=== PATIENT | female | born 1970 | race Caucasian/White ===

== ENCOUNTER 2016-03-15 17:44 | Emergency (ER) | payer BC ==
[2016-03-15 18:28] LABS: ABSOLUTE NEUTROPHIL COUNT 5.3 K/mm3 (1.8-7.7); BASO # 0.1 K/mm3 (0.0-0.2); BASO % 0.8 % (0.2-1.0); EOS # 0.2 (0.0-0.5); EOS % 2.3 % (0.9-2.9); HEMATOCRIT 42.1 % (37.0-47.0); HEMOGLOBIN 14.3 gm/l (12.0-16.0); IMM NEUT% 0.3 % (0-1); LYMPH # 3.5 (1.0-4.8); MEAN CELL VOLUME 89.6 fl (81.0-99.0); MEAN CORPUSCULAR HEMOGLOBIN 30.4 pg (27.0-31.0); MEAN PLATELET VOLUME 11.2 fl (7.4-10.4); MONO # 0.9 (0.0-0.8); MONO % 8.7 % (4-12); NEUT % 52.9 % (43-75); PLATELET COUNT 252 K/mm3 (130-400)
[2016-03-15 18:40] LABS: I-STAT CREATININE 0.6 mg/dL (0.6-1.3)
--- NOTE | 2016-03-15 18:42 | RAD ---
EXAMINATION : CHEST-AP BEDSIDE HISTORY: Chest pain COMPARISONS: None FINDINGS: The cardiomediastinal silhouette is within normal limits. Lungs are clear. No gross effusion is identified. The osseous structures are within normal limits. IMPRESSION: Negative single view chest.
[2016-03-15] MEDS ORDERED: HYDROMORPHONE HCL 1 MG/ML SYRINGE ONE ×2 (19:03→21:38)
[2016-03-15] MEDS ORDERED: PANTOPRAZOLE SODIUM 40 MG VIAL IV ONE (19:03)
[2016-03-15 23:06] LABS: CALCIUM 9.3 mg/dL (8.6-10.3)
== END 2016-03-15 22:08 | disposition home or self-care (01) ==
LOC: ED 17:44
DX: R07.9 Chest pain, unspecified (principal); I25.2 Old myocardial infarction; E11.9 Type 2 diabetes mellitus without complications; E78.00 Pure hypercholesterolemia, unspecified; F32.9 Major depressive disorder, single episode, unspecified
CPT/HCPCS: 83880; 85025; 80048; 84484 ×2; 71010; 96375; 96376; 99284 ×2; 96374; 93005; J1170 ×2; C9113